=== PATIENT | male | born 1970 | race Caucasian/White ===

== ENCOUNTER 2018-01-09 11:22 | Emergency (ER) | payer MEDICAID ==
[~2018-01-09] VITALS: Ht 180.3 cm; Wt 93.8 kg
[2018-01-09 11:37] VITALS: BP 127/84
[2018-01-09] MEDS ORDERED: ALBU2.5V11 NEB (12:36)
== END 2018-01-09 14:00 | disposition home or self-care (01) ==
LOC: ED 13:00
DX: S83.91XA Sprain of unspecified site of right knee, initial encounter (principal); Z88.6 Allergy status to analgesic agent; Z88.0 Allergy status to penicillin; X58.XXXA Exposure to other specified factors, initial encounter; Y93.89 Activity, other specified; Y99.8 Other external cause status; Y92.89 Other specified places as the place of occurrence of the external cause
CPT/HCPCS: 29505; 99284